=== PATIENT | female | born 1970 | race Caucasian/White ===

== ENCOUNTER 2018-06-21 15:53 | Emergency (ER) | payer MEDICAID ==
[2018-06-21] MEDS ORDERED: Aspirin 81mg Chewable Tab PO STA ×4 (15:58→16:22)
--- NOTE | 2018-06-21 16:07 | ED Physician Chart ---
ED Chief Complaint/HPI - Patient Information Date Seen:: 06/21/18 Time Seen:: 15:59 Chief Complaint:: CP History of Present Illness:: 48 YR OLD FEMALE WITH CP FOR 3 NIGHTS AND NOW TODAY SINCE THURSDAY NIGHT CONSTANT SOME FEVER NO HEADACHE DIZZINESS SOME NECK AND LT ARM PAON AND DIZZINESS Allergies:: NONE ED Review of Systems - Review of Systems General/Constitutional: Fever Skin: No skin lesions Head: Headache Eyes: No loss of vision Neck: Neck pain Cardio Vascular: Chest pain Pulmonary: SOB GI: No nausea, No vomiting G/U: No dysuria Endocrine: Polyuria Psychiatric: Anxiety Hematopoietic: No bruising Allergic/Immuno: No urticaria Neurological: No syncope ED Past Medical History - Past Medical History Past Medical History: No significant medical hx ED Physical Exam - Physical Examination General/Constitutional: Well-developed, well-nourished, No distress Head: Atraumatic Eyes: Lids, conjuctiva normal Skin: Nl inspection ENMT: External ears, nose nl Neck: Nontender Respiratory: Nl effort/Exclusion Cardio Vascular: No murmur, gallop, rubs GI: No tenderness/rebounding/guarding : No CVA tenderness Extremities: No tenderness or effusion Neuro/Psych: Alert/oriented, Normal sensory exam, Normal motor strength Misc: Normal back ED Assessment - Assessment General Assessment: CHEST PAIN ED Septic Shock - . Is Septic Shock (SBP<90, OR Lactate>4 mmol\L) present?: No ED Reassessment (Disposition) - Diagnosis Diagnosis:: CP - Patient Disposition Discharge/Transfer:: Home Condition at Disposition:: Stable
[2018-06-21] MEDS ORDERED: Aspirin 81mg Chewable Tab ONE ×2 (16:15→16:19)
[2018-06-21 16:17] LABS: % BASOPHILS 0.8 % (0.0-2.0); % EOSINOPHILS 2.5 % (0.0-5.0); % LYMPHOCYTES 26.6 % (20.0-50.0); % MONOCYTES 5.6 % (2.0-10.0); % NEUTROPHILS 64.5 % (40.0-80.0); BASOPHILE ABSOLUTE 0.1 Th/cumm (0-0.2); EOSINOPHILE ABSOLUTE 0.2 Th/cmm (0.1-0.4); HEMATOCRIT 38.8 % (41.0-60); HEMOGLOBIN 13.3 gm/dL (12-16); LYMPHOCYTE ABSOLUTE 1.7 Th/cmm (1.5-3.0); MEAN CELL VOLUME 90.1 fl (81-100); MEAN CORPUSCULAR HEMOGLOBIN 30.8 pg (27.0-31.0); MEAN CORPUSCULAR HGB CONC 34.1 pg (28.0-36.0); MEAN PLATELET VOLUME 8.1 fl; MONOCYTE ABSOLUTE 0.4 Th/cmm (0.3-1.0); PLATELET COUNT 236 Th/cmm (150-400); RED BLOOD COUNT 4.31 Mil/cmm (3.80-5.10); RED CELL DISTRIBUTION WIDTH 12.3 % (11.5-20.0); WHITE BLOOD COUNT 6.4 Th/cmm (4.8-10.8)
[2018-06-21 16:35] LABS: ALB/GLOB RATIO 1.2 (1.0-1.8); ALBUMIN 3.7 gm/dL (3.7-5.3); ALKALINE PHOSPHATASE 69 U/L (34-104); ANION GAP 8.6 (7.0-16.0); BILIRUBIN,TOTAL 0.4 mg/dL (0.3-1.0); BUN - UREA NITROGEN 17 mg/dL (7-25); CALCIUM SERUM 9.1 mg/dL (8.6-10.3); CARBON DIOXIDE 27.2 mEq/L (21.0-31.0); CHLORIDE 105 mEq/L (98-107); CREATININE - SERUM 0.6 mg/dL (0.6-1.2); CREATININE KINASE 112 U/L (30-223); GFR AFRICAN-AMERICAN > 60.0 ml/min (>90); GFR NON AFRICAN-AMERICAN > 60.0 ml/min; GLUCOSE 118 mg/dL (70-105); POTASSIUM SERUM 3.8 mEq/L (3.5-5.1); SGOT 27 U/L (13-39); SGPT/ALT 24 U/L (7-52); SODIUM SERUM 137 mEq/L (136-145); TOTAL PROTEIN,SERUM 6.8 gm/dL (6.0-8.3)
[2018-06-21 18:14] LABS: URINE SOURCE CLEAN C
[2018-06-21 18:15] LABS: URINE BILIRUBIN NEGATIVE (NEGATIVE); URINE BLOOD LARGE (NEGATIVE); URINE GLUCOSE (UA) NEGATIVE (NEGATIVE); URINE KETONE NEGATIVE (NEGATIVE); URINE LEUKOCYTE ESTERASE NEGATIVE (NEGATIVE); URINE MICROSCOPIC INDICATED? YES; URINE NITRATE NEGATIVE (NEGATIVE); URINE PH 7.5 (4.6 - 8.0); URINE PROTEIN NEGATIVE (NEGATIVE); URINE UROBILINOGEN 0.2 E.U./dL (0.2 - 1.0)
[2018-06-21 18:23] LABS: URINE CLARITY CLEAR (CLEAR); URINE COLOR YELLOW
[2018-06-21 18:26] LABS: URINE BACTERIA FEW /hpf (NONE SEEN); URINE EPITHELIAL CELLS FEW /lpf (FEW)
--- NOTE | 2018-06-22 07:32 | Diagnostic Imaging Report ---
CHEST X-RAY: AP view INDICATION: Shortness of breath COMPARISON: None FINDINGS: Mild accentuation of the interstitial lung markings are noted. Suboptimal lung volumes are noted. There is no focal consolidation or pleural effusions . Cardiomegaly is noted. The osseous structures are intact. IMPRESSION: Mild accentuation of the interstitial lung markings, nonspecific. No evidence of elham CHF. No focal consolidation identified Cardiomegaly. There may be minimal atherosclerosis of the aortic arch.
--- NOTE | 2018-06-22 07:35 | Diagnostic Imaging Report ---
Carotid ultrasound HISTORY: Chest pain COMPARISON: None Technique: Longitudinal and transverse sonographic sector images of the carotid arteries were obtained with doppler analysis. FINDINGS: Exam is limited due to body habitus and tortuous vessels. Exam of the right side demonstrates minimal atherosclerotic vascular disease. No evidence of elevated velocities. The velocity ratios are within normal limits. Exam of the left side demonstrates minimal atherosclerotic vascular disease. No evidence of elevated velocities. The velocity ratios are within normal limits. Antegrade vertebral artery flow is demonstrated bilaterally. IMPRESSION: Minimal generalized atherosclerotic vascular disease. No evidence of significant stenosis.
--- NOTE | 2018-06-22 10:36 | Cardiology ---
06/21/2018 ECHOCARDIOGRAM REPORT PATIENT OF: Dr. Bryant Ramírez M-MODE ECHOCARDIOGRAM: Mitral valve: Anterior leaflet of mitral valve shows normal excursion, EF velocity. Posterior leaflet of mitral valve shows normal excursion. Left ventricular posterior wall shows increased thickness, normal excursion. Interventricular septum shows increased thickness, normal excursion, hypertrophy of the left ventricle, ejection fraction 66%. Left atrium normal. Aortic root shows normal dimension, normal excursion of aortic leaflets. CONCLUSION: Hypertrophy of the left ventricle, ejection fraction 66%. TWO-D ECHO: Long axis view show normal size left ventricle with hypertrophy of the left ventricle. Left atrium normal. Aortic root shows normal dimension, normal excursion of aortic leaflets. Short axis view of mitral valve normal. Short axis view of aortic valve normal. Apical four chamber view showed normal sized left ventricle, left atrium, right ventricle, right atrium, tricuspid and mitral valve. Ejection fraction 66%. CONCLUSION: Hypertrophy of the left ventricle, ejection fraction 66%. Doppler study shows trace mitral regurgitation, trace tricuspid regurgitation, right ventricular systolic pressure 26 mmHg. CONCLUSION: Trace mitral regurgitation, trace tricuspid regurgitation, hypertrophy of the left ventricle, ejection fraction 66%. JOB# [id number]
== END 2018-06-21 19:30 | disposition home or self-care (01) ==
LOC: ER 15:53
DX: I20.9 Angina pectoris, unspecified (principal); F41.9 Anxiety disorder, unspecified; R51 Headache; M54.2 Cervicalgia; R35.8 Other polyuria
CPT/HCPCS: 36415-UA; 71045-TC; 80053-TC; 81001-TC; 82550-TC; 84484-TC; 85025-TC; 93880-TC; Z7610